=== PATIENT | male | born 1985 ===

== ENCOUNTER 2023-04-11 22:24 | Inpatient (IN) | payer SELFPAY ==
[2023-04-11 22:25] VITALS: BP 129/87; PULSE 113; RESP 32; TEMP 37.6; O2SAT 94; BMI 29.5
--- NOTE | 2023-04-11 22:30 | XRR_ITS ---
PROCEDURE INFORMATION: Exam: XR Chest Exam date and time: 04/11/2023 10:46 PM Age: 37 years old Clinical indication: Pain; Chest pressure; Additional info: Chest pain TECHNIQUE: Imaging protocol: Radiologic exam of the chest. Views: 1 view. COMPARISON: No relevant prior studies available. FINDINGS: Lungs: Shallow inspiration with crowding in the lung bases. Airspace opacity in the peripheral left lung base. The right lung is clear. Pleural spaces: Unremarkable. No pleural effusion. No pneumothorax. Heart/Mediastinum: Unremarkable. No cardiomegaly. Bones/joints: Unremarkable. XR/XR chest 1V portable [id number] IMPRESSION: Opacity in the peripheral left lung base is suspicious for pneumonia.
--- NOTE | 2023-04-11 22:35 | ECG_ITS ---
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 Measurements Intervals [place] Rate: 109 P: 26 DE: 161 QRS: 34 QRSD: 92 T: 50 QT: 325 QTc: 439 Interpretive Statements SINUS TACHYCARDIA NONSPECIFIC T-WAVE ABNORMALITY ABNORMAL RHYTHM ECG No previous ECG available for comparison Electronically Signed On 04-12-2023 21:47:16 DESIGN MAKER by Shena Pepe M.D. [id number]
--- NOTE | 2023-04-11 22:40 | W.ED.CHESTPA ---
HPI - Chest Pain General: Chief Complaint: Chest Pain Stated Complaint: CP, SOB, shoulder pain Time Seen by Provider: 04/11/23 22:31 History of Present Illness: 37-year-old male presents emergency department via EMS personnel with complaints of intermittent shortness of breath and left anterior chest wall pain and left posterior shoulder pain. He states the chest discomfort started this morning while he was driving and is a intermittent dull type pain. He states he has a history of a blood clot in the right lower leg. He states he felt short of breath this morning when the pain started. He denies nausea vomiting or diaphoresis. He denies dizziness or lightheaded feeling. Associated symptoms: Reports dyspnea Review of Systems General: Reports: 10 or more systems reviewed and unremarkable except in HPI and below Card: Reports: chest pain Resp: Reports: dyspnea Musc: Reports: extremity pain (Left shoulder pain) Physical Exam Narrative: EXAM NARRATIVE: Constitutional: the patient appears well nourished and with normal development. Vital signs reviewed as documented. HENMT: Normocephalic, atraumatic. Extermal ears with normal appearance without drainage. Nose without drainage, normal appearance. Mucus membranes moist. Neck is supple, No jugular venous distension, trachea is midline, no appreciable carotid bruits. No lymphadenopathy. No meningeal signs. Flexion, extension and lateral rotation is without pain. Eyes: Pupils are equal, round, reactive to light and accommodation. No scleral icterus. Extra-ocular movement are intact. Thorax is symmetrical and with equal rise and fall with respirations. Resp: Lungs are clear to auscultation. No wheezes, rales, crackles or ronchi at present. Cardio: Regular rate and rhythm. Positive S1, S2. No appreciable murmurs, rubs or gallops. GI: Abdominal exam reveals normal bowel sounds to all quadrants. No organomegaly. No obvious palpable masses noted. No hepatomegally appreciated. Soft, nontender to palpation. Extremity: Extremities are non-edematous and both femoral and pedal pulses are 2+ and equal bilaterally. Moves all extremities well, sensation in all extremities. Neuro: Alert and oriented x4, person, place, time and situation. Cranial nerves II through XII are grossly intact, there is no focal neurological deficits that I can appreciate at present. Motor strength in the upper and lower extremities are equal and bilateral 5/5. Psych: Cooperative, calm, normal thought process, appropriate judgment. Skin: No lesions, rashes. No gross abnormalities noted. Back: Symmetrical, no obvious deformity, No CVA tenderness Course Vital Signs: Vital signs: Vital Signs Temperature 99.6 F 04/11/23 22:25 Pulse Rate 101 H 04/12/23 01:00 Respiratory Rate 18 04/11/23 23:55 Blood Pressure 133/79 04/12/23 01:00 Pulse Oximetry 98 04/12/23 01:00 Oxygen Delivery Me thod Room Air 04/12/23 00:30 MDM - Chest Pain Medical Decision Making Physical exam completed and documented, I will obtain serial cardiac enzymes, serial twelve-lead EKGs, chest x-ray, CBC, CMP, urinalysis, B-type natriuretic peptide, PT/PTT/INR, and a chest x-ray. I provide cardiac dose aspirin if indicated and nitroglycerin administration if indicated. Pending the review of the twelve-lead EKG I will also consider providing loading dose of heparin and possible heparin drip as well as evaluate the need for nitroglycerin drip, and reevaluate accordingly. Lab Data 04/11/23 22:48 04/11/23 22:48 Radiology Impressions Chest X-Ray 04/11/23 22:30 IMPRESSION: Opacity in the peripheral left lung base is suspicious for pneumonia. Chest CTA 04/11/23 23:18 IMPRESSION: 1. Extensive pulmonary emboli. 2. No evidence of right heart strain with an RV to LV ratio of 0.92. 3. Irregular consolidations in the lung bases posteriorly and lingula thought likely to represent pulmonary infarctions. ADDENDUM: 04/12/23 0017 THIS REPORT CONTAINS FINDINGS THAT MAY BE CRITICAL TO PATIENT CARE. The findings were verbally communicated via telephone conference with KARLA Oreilly at 12:16 AM MANAGER DISASTER RECOVERY on 04/12/2023. The findings were acknowledged and understood. Laboratory Results WBC 11.21 10^3/uL (3.29-11.43) 04/11/23 22:48 RBC 4.91 10^6/uL (3.85-5.65) 04/11/23 22:48 Hgb 13.90 g/dL (11.27-16.99) 04/11/23 22:48 Hct 41.5 % (37-53) 04/11/23 22:48 MCV 84.5 fl (82-101) 04/11/23 22:48 MCH 28.3 pg (27-33) 04/11/23 22:48 MCHC 33.5 g/dL (30-55) 04/11/23 22:48 RDW 13.5 % (12.1-15.1) 04/11/23 22:48 Plt Count 225 10^3/cmm (157-399) 04/11/23 22:48 MPV 9.5 fL (7.4-10.4) 04/11/23 22:48 Neut % (Auto) 78.3 % 04/11/23 22:48 Lymph % (Auto) 16.1 % 04/11/23 22:48 [place] % (Auto) 3.7 % 04/11/23 22:48 Eos % (Auto) 1.2 % 04/11/23 22:48 Baso % (Auto) 0.5 % 04/11/23 22:48 Neut # (Auto) 8.78 10^3/uL (1.8-7.7) H 04/11/23 22:48 Lymph # (Auto) 1.8 10^3/uL (0.8-4.8) 04/11/23 22:48 [place] # (Auto) 0.4 10^3/uL (0.2-0.9) 04/11/23 22:48 Eos # (Auto) 0.1 10^3/uL (0.0-0.8) 04/11/23 22:48 Baso # (Auto) 0.1 10^3/uL (0.0-0.1) 04/11/23 22:48 Nucleated RBC % (auto) 0 % 04/11/23 22:48 Nucleated RBCs # 0.0 /100WBC 04/11/23 22:48 PT 13.40 SECONDS (12.1-14.9) 04/11/23 22:48 INR 1.00 (0.8-1.2) 04/11/23 22:48 APTT 26.0 SECONDS (23.9-36.7) 04/11/23 22:48 D-Dimer 1.78 ug/mLFEU (0-0.59) H 04/11/23 22:48 Sodium 141 mmol/L (136-145) 01/10/24 22:48 Potassium 3.9 mmol/L (3.5-5.1) 04/11/23 22:48 Chloride 106 mmol/L (98-107) 04/11/23 22:48 Carbon Dioxide 25 mmol/L (22-29) 04/11/23 22:48 Anion Gap 13.9 (5-19) 04/11/23 22:48 BUN 12 mg/dL (6-20) 04/11/23 22:48 Creatinine 0.8 mg/dL (0.7-1.2) 04/11/23 22:48 GFR Calculation 109.4 mL/min (90-130) 04/11/23 22:48 Glucose 122 mg/dL (65-115) H 04/11/23 22:48 Calculated Osmolality 293 mOsm/kg (285-295) 04/11/23 22:48 Calcium 8.7 mg/dL (8.5-10.5) 04/11/23 22:48 Total Bilirubin 0.5 mg/dL (0.15-1.2) 04/11/23 22:48 AST 13 U/L (0-40) 04/11/23 22:48 ALT 18 U/L (0-41) 04/11/23 22:48 Alkaline Phosphatase 81 U/L (40-130) 04/11/23 22:48 Troponin T Baseline < 6 ng/L (0-15) 04/11/23 22:48 Troponin T 120 Minute 6.00 ng/L (0-15) 04/12/23 00:36 Delta Troponin T 0.43233 ABS# (0-10) 04/12/23 00:36 NT-Pro-B Natriuret Pep < 36 pg/mL (0-125) 04/11/23 22:48 Total Protein 7.0 g/dL (6.6-8.7) 04/11/23 22:48 Albumin 3.8 g/dL (3.5-5.2) 04/11/23 22:48 Globulin 3.2 g/dL (1.3-4.6) 04/11/23 22:48 Urine Color Yellow (Yellow) 04/12/23 00:00 Urine Appearance Clear (CLEAR) 04/12/23 00:00 Urine pH 6 (5-7) 04/12/23 00:00 Ur Specific [place] 1.015 (1.005-1.030) 04/12/23 00:00 Urine Protein Trace (Negative) 04/12/23 00:00 Urine Glucose (UA) Norm (Normal) 04/12/23 00:00 Urine Ketones Negative (Negative) 04/12/23 00:00 Urine Blood Neg (Negative) 04/12/23 00:00 Urine Nitrate Negative (Negative) 04/12/23 00:00 Urine Bilirubin Neg (Negative) 04/12/23 00:00 Urine Urobilinogen 1 mg/dL (Negative) H 04/12/23 00:00 Ur Leukocyte Esterase Negative (Negative) 04/12/23 00:00 Urine RBC 0-4 /hpf (0-2) H 04/12/23 00:00 Urine WBC 0-4 /hpf (0-5) H 04/12/23 00:00 Ur Squamous Epith Cells 0-4 /hpf (0-5) H 04/12/23 00:00 Amorphous Sediment Not Reportable 04/12/23 00:00 Urine Bacteria Trace /hpf (NONE) 04/12/23 00:00 Urine Mucus Trace /hpf 04/12/23 00:00 Urine Opiates Screen Negative ng/mL (Negative) 04/12/23 00:00 Ur Barbiturates Screen Negative ng/mL (Negative) 04/12/23 00:00 Ur Phencyclidine Scrn Negative ng/mL (Negative) 04/12/23 00:00 Ur Amphetamines Screen Negative ng/mL (Negative) 04/12/23 00:00 U Benzodiazepines Scrn Negative ng/mL (Negative) 04/12/23 00:00 Urine Cocaine Screen Negative ng/mL (Negative) 04/12/23 00:00 U Marijuana (THC) Screen Negative ng/mL (Negative) 04/12/23 00:00 All radiology interpretation(s) finalized by discharge EKG Data EKG 1: Interpretation: Twelve-lead EKG obtained at 2235 and reviewed at 2235 demonstrates sinus tachycardia with a ventricular rate of 109 bpm, [place] interval 161, QRS duration 92, QT 325 and QTc 389. There is no ST elevation or depression at present to demonstrate acute ischemia or infarction. Critical Care Time Critical Care Time: Critical Care Time: Yes Total Critical Care Time: 60 Attestation: The patients was emergently evaluated as this patient's presentation and case had a high probability of a clinically significant, sudden, or life threatening deterioration of this patient's initial critical presentation or condition which required my full and direct attention, intervention and personal management. Discharge Plan Discharge Patient Disposition: Admitted As Inpatient Clinical Impression: Pulmonary embolism, Chest pain Condition: Stable Coding Level of Care Code ED Diagnostics Tech for Rikki Aj
[2023-04-11 22:54] LABS: Basophils # 0.1 10^3/uL (0.0-0.1); Basophils % 0.5 %; Eosinophils # 0.1 10^3/uL (0.0-0.8); Eosinophils % 1.2 %; Hematocrit 41.5 % (37-53); Lymphocytes # 1.8 10^3/uL (0.8-4.8); Lymphocytes % 16.1 %; Mean Corpuscular HGB Conc 33.5 g/dL (30-55); Mean Corpuscular Hemoglobin 28.3 pg (27-33); Mean Corpuscular Volume 84.5 fl (82-101); Mean Platelet Volume 9.5 fL (7.4-10.4); Monocytes # 0.4 10^3/uL (0.2-0.9); Monocytes % 3.7 %; Neutrophils # 8.78 10^3/uL (1.8-7.7); Neutrophils % 78.3 %; Nucleated Red Blood Cells % 0 %; Platelet Count 225 10^3/cmm (157-399); Red Blood Count 4.91 10^6/uL (3.85-5.65); Red Cell Distribution Width 13.5 % (12.1-15.1); White Blood Count 11.21 10^3/uL (3.29-11.43)
[2023-04-11 22:55] VITALS: PULSE 97; O2SAT 98
[2023-04-11 23:10] LABS: D Dimer 1.78 ug/mLFEU (0-0.59)
--- NOTE | 2023-04-11 23:18 | CTR_ITS ---
PROCEDURE INFORMATION: Exam: CTA Chest With Contrast Exam date and time: 04/11/2023 11:30 PM Age: 37 years old Clinical indication: Pain and abnormal findings; Other: Elevated dimer; Dyspnea; Chest wall pain; Patient HX: Left side chest pain; Additional info: Shortness of breath, chest pain, elevated d-dimer TECHNIQUE: Imaging protocol: Computed tomographic angiography of the chest with contrast. Exam focused on the arteries. 3D rendering (Not supervised by radiologist): MIP and/or 3D reconstructed images were created by the technologist. Radiation optimization: All CT scans at this facility use at least one of these dose optimization techniques: automated exposure control; mA and/or kV adjustment per patient size (includes targeted exams where dose is matched to clinical indication); or iterative reconstruction. Contrast material: OMNI 350; Contrast volume: 80 ml; Contrast route: INTRAVENOUS (IV); COMPARISON: CR XR chest 1V portable [id number] 04/11/2023 10:46 PM RADIATION DOSE METRICS: Total DLP (mGy-cm): 553.98 FINDINGS: Pulmonary arteries: Pulmonary emboli in the subsegmental pulmonary artery supplying the lingula, left lower lobe, right lower lobe, right middle lobe and segmental artery supplying the right upper. Aorta: Unremarkable. No aortic aneurysm. No aortic dissection. Lungs: Irregular consolidations in the lung bases posteriorly and lingula. Pleural spaces: Unremarkable. No pneumothorax. No pleural effusion. Heart: No evidence of right heart strain with an RV to LV ratio of 0.92. Lymph nodes: Unremarkable. No enlarged lymph nodes. Bones/joints: Unremarkable. No acute fracture. Soft tissues: Unremarkable. CT/CT angio chest PE protcl [id number] IMPRESSION: 1. Extensive pulmonary emboli. 2. No evidence of right heart strain with an RV to LV ratio of 0.92. 3. Irregular consolidations in the lung bases posteriorly and lingula thought likely to represent pulmonary infarctions.
[2023-04-11 23:22] LABS: Troponin(5th) Baseline < 6 ng/L (0-15)
[2023-04-11 23:25] VITALS: PULSE 98; O2SAT 97
[2023-04-11 23:29] LABS: Alanine Aminotransferase 18 U/L (0-41); Albumin Level 3.8 g/dL (3.5-5.2); Alkaline Phosphatase 81 U/L (40-130); Anion Gap 13.9 (5-19); Aspartate Amino Transferase 13 U/L (0-40); Blood Urea Nitrogen 12 mg/dL (6-20); Calcium 8.7 mg/dL (8.5-10.5); Carbon Dioxide 25 mmol/L (22-29); Chloride 106 mmol/L (98-107); Creatinine Clr Calc Pharmacy 151.0253; Globulin 3.2 g/dL (1.3-4.6); Glomerular Filtration Rate 109.4 mL/min (90-130); Glucose 122 mg/dL (65-115); NT Pro B Type Natriuretic Pept < 36 pg/mL (0-125); Osmolality Calculated 293 mOsm/kg (285-295); Potassium 3.9 mmol/L (3.5-5.1); Sodium 141 mmol/L (136-145); Total Bilirubin 0.5 mg/dL (0.15-1.2)
[2023-04-11] MEDS: iohexol 350 mg/mL 500 mL Btl (per mL) IV (23:43)
[2023-04-11 23:55] VITALS: PULSE 98; RESP 18; O2SAT 97
[2023-04-12] VITALS (16 sets, daily range): BP systolic 121–142; BP diastolic 77–93; PULSE 65–106; RESP 16–18; TEMP 36.5–38.3; O2SAT 90–99; BMI 29.2
[2023-04-12 00:14] LABS: Amphetamines Screen Urine Negative (Negative); Barbiturates Screen Urine Negative (Negative); Benzodiazepines Screen Urine Negative (Negative); Cocaine Screen Urine Negative (Negative); Opiate Screen Urine Negative (Negative); PCP Screen Urine Negative (Negative); THC Screen Urine Negative (Negative)
[2023-04-12 00:16] LABS: Add Urine Microscopic? YES; Bacteria Urine TRACE /hpf; Bilirubin Urine Neg (Negative); Blood Urine Neg (Negative); Glucose Urine UA Norm (Normal); Ketones Urine Negative (Negative); Leukocyte Esterase Urine Negative (Negative); Mucus Urine TRACE /hpf; Nitrate Urine Negative (Negative); Protein Urine Trace (Negative); RBC Urine 0-4 /hpf (0-2); Specific Gravity, Urine 1.015 (1.005-1.030); Squamous Epithelial Cell Urine 0-4 /hpf (0-5); Urine Appearance Clear (CLEAR); Urine Color Yellow (Yellow); Urobilinogen Urine 1 mg/dL (Negative); WBC Urine 0-4 /hpf (0-5); pH Urine 6 (5-7)
[2023-04-12 00:17] LABS: Add Urine Culture? No
--- NOTE | 2023-04-12 00:39 | ECG_ITS ---
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 Measurements Intervals [place] Rate: 94 P: 30 [place]: 160 QRS: 37 QRSD: 90 T: 53 QT: 336 QTc: 420 Interpretive Statements SINUS RHYTHM NONSPECIFIC T-WAVE ABNORMALITY Compared to ECG 04/11/2023 22:35:44 Sinus tachycardia no longer present T-wave abnormality still present Electronically Signed On 04-12-2023 21:50:47 MENTAL TESTER by Shena Pepe M.D. [id number]
[2023-04-12 01:11] LABS: Troponin 5 2HR Delta 0.00001 ABS# (0-10)
--- NOTE | 2023-04-12 01:11 | USR_ITS ---
PROCEDURE INFORMATION: Exam: US Duplex Lower Extremity Veins, Bilateral Exam date and time: 04/12/2023 1:29 AM Age: 37 years old Clinical indication: Pain; Other: Limited citizen of [place], patient is from [facility]. ; Additional info: Evaluate for dvt TECHNIQUE: Imaging protocol: Real-time duplex ultrasound of the bilateral extremities with 2-D ch scale, color Doppler flow and spectral waveform analysis including responses to compression and other maneuvers (when performed) with image documentation. Complete exam focused on the lower extremity veins. COMPARISON: No relevant prior studies available. FINDINGS: Right deep veins: One of the 2 right posterior tibial veins is thrombosed. The other is patent. The remainder of the veins in the right lower extremity are patent. Left deep veins: Unremarkable. The common femoral, femoral, proximal profunda femoral and popliteal veins are patent without thrombus. Normal Doppler waveforms. Normal compressibility and/or augmentation response. Superficial veins: Bilateral saphenofemoral junctions are patent without thrombus. Soft tissues: Unremarkable. US/[place] [id number] IMPRESSION: 1. One of the 2 right posterior tibial veins is thrombosed. The other is patent. The remainder of the veins in the right lower extremity are patent. 2. No deep venous thrombosis in the left lower extremity.
[2023-04-12] MEDS: heparin drip 25,000 UNIT/500 ML PREMIX 27 UNIT IV (01:42)
[2023-04-12] MEDS: heparin 5,000 unit/mL INJ 1 mL IV ×2 (01:44→08:46)
[2023-04-12] MEDS: morphine 4 mg/mL SDV 1 mL IVP (02:16)
[2023-04-12] MEDS: ondansetron 2 mg/ML SDV 2 mL 4 MG IVP (02:16)
--- NOTE | 2023-04-12 03:57 | PC.NURSE ---
[place]ian network operations lead utilized for admission assessment questions. Pt verbalized understanding of care and all questions and concerns were addressed.
--- NOTE | 2023-04-12 05:04 | P.HP_ITS ---
Providers/Chief Complaint 2 Admitting Physician: Fatoumata Torres MD Chief Complaint: CP, SOB, shoulder pain History of Present Illness Alison Rayo is a 37 year old male Who presented to the emergency room today with chest pain of 1 day duration. Pain is located on the left axillary region, radiating into the left shoulder. Deep breathing makes it worse. His EKG did not show any acute ST-T wave changes and troponin series was unremarkable. CTA of the chest was performed which showed bilateral PE. Is currently saturating 95% on room air. Patient has a past medical history of DVT 7 years ago, per his description it appears the DVT was fairly extensive extending into the IVC. He was on Coumadin at that time and took it for a few months, however then he decided to discontinue treatment by himself as he was feeling well. It is unknown if he had any hypercoagulable workup at that time. No history of malignancy. No family history of DVT/PE. 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 He had appendicitis 2 months ago and underwent surgery for the same. He was ambulatory, does not recall being sedentary for a prolonged peiord of time Review of Systems 2 General: Reports: 10 or more systems reviewed and unremarkable except in HPI and below Const: Denies: fever(s), chills or body aches Eyes: Denies: change in vision, blurry vision or photophobia ENMT: Reports: hoarseness; Denies: throat pain, enlarged tonsils, odynophagia or nasal congestion Card: Denies: chest pain, palpitations, irregular heart rhythm, edema, swelling of feet/ankles, lightheadedness, pre-syncope, dyspnea on exertion or orthopnea Resp: Denies: dyspnea, productive cough, non-productive cough, wheezing, stridor, pain on inspiration, change in phlegm color, hemoptysis or chest congestion GI: Denies: abdominal pain, nausea, vomiting, hematemesis, coffee ground emesis, dysphagia, heartburn, diarrhea, constipation, GI cramping, change in stool character, hematochezia or melena : Denies: flank pain, dysuria, urinary frequency, urinary urgency, urinary hesitancy or hematuria Musc: Denies: neck pain, back pain, extremity pain, joint swelling, joint warmth or deformity Neuro: Denies: headache(s), numbness in extremities, weakness in extremities, sensory changes, difficulty walking, frequent falls, dizziness, vertigo, behavioral changes, Slurred speech present or seizure-like activity Psych: Denies: anxiety, depression, suicidal ideation or homicidal ideation Endo: Denies: polyuria, polydipsia, tired all the time, cold intolerance or hot flashes Jose Luis/Lymph: Denies: easy bruising or easy bleeding Medications/Allergies Allergies Allergy/AdvReac Type Severity Reaction Status Date / Time No Known Allergies Allergy Verified 04/12/23 02:00 PFSH Acute 2 PFSH: Medical History (Updated 04/12/23 @ 05:09 by Fatoumata Torres MD) DVT (deep venous thrombosis) Vitals/I&O/Wt Last Vital Signs Temp 98.1 F 04/12/23 03:04 Pulse 75 04/12/23 03:04 Resp 16 04/12/23 03:04 BP 122/82 04/12/23 03:04 Pulse Ox 95 04/12/23 03:04 O2 Del Method Room Air 04/12/23 03:05 04/11/23 04/11/23 04/12/23 14:59 22:59 06:59 Intake Total 0 / 0 Output Total 0 / 0 Balance 0 / 0 Weight last 48 hrs Weight 95.254 kg Weight 96.162 kg Physical Exam 2 Narrative: General: No acute distress, AO x3 HEENT: PERRLA, pupils bilaterally equal and reactive, pallors not present Chest: Normal vesicular breath sounds, no added sounds, equal good air entry bilaterally CVS: S1-S2 regular, no murmurs, no tachycardia, no gallops, no rubs Abdomen: Soft, nontender, no organomegaly, bowel sounds present Neuro: No focal deficits, no facial deformity, AO x3, power 5/5 in all limbs Data 04/11/23 22:48 04/11/23 22:48 Other data: Radiology Impressions Chest X-Ray 04/11/23 22:30 IMPRESSION: Opacity in the peripheral left lung base is suspicious for pneumonia. Chest CTA 04/11/23 23:18 IMPRESSION: 1. Extensive pulmonary emboli. 2. No evidence of right heart strain with an RV to LV ratio of 0.92. 3. Irregular consolidations in the lung bases posteriorly and lingula thought likely to represent pulmonary infarctions. ADDENDUM: 04/12/23 0017 THIS REPORT CONTAINS FINDINGS THAT MAY BE CRITICAL TO PATIENT CARE. The findings were verbally communicated via telephone conference with KALRA Oreilly at 12:16 AM RADIO TIME SALES SUPERVISOR on 04/12/2023. The findings were acknowledged and understood. Venous Duplex 04/12/23 01:11 IMPRESSION: 1. One of the 2 right posterior tibial veins is thrombosed. The other is patent. The remainder of the veins in the right lower extremity are patent. 2. No deep venous thrombosis in the left lower extremity. ADDENDUM: 04/12/23 0253 THIS REPORT CONTAINS FINDINGS THAT MAY BE CRITICAL TO PATIENT CARE. The findings were verbally communicated via telephone conference with Dr. Brady at 2:51 AM RADIO TIME SALES SUPERVISOR on 04/12/2023. The findings were acknowledged and understood. Laboratory Results WBC 11.21 10^3/uL (3.29-11.43) 04/11/23 22:48 RBC 4.91 10^6/uL (3.85-5.65) 04/11/23 22:48 Hgb 13.90 g/dL (11.27-16.99) 04/11/23 22:48 Hct 41.5 % (37-53) 04/11/23 22:48 MCV 84.5 fl (82-101) 04/11/23 22:48 MCH 28.3 pg (27-33) 04/11/23 22:48 MCHC 33.5 g/dL (30-55) 04/11/23 22:48 RDW 13.5 % (12.1-15.1) 04/11/23 22:48 Plt Count 225 10^3/cmm (157-399) 04/11/23 22:48 MPV 9.5 fL (7.4-10.4) 04/11/23 22:48 Neut % (Auto) 78.3 % 04/11/23 22:48 Lymph % (Auto) 16.1 % 04/11/23 22:48 [place] % (Auto) 3.7 % 04/11/23 22:48 Eos % (Auto) 1.2 % 04/11/23 22:48 Baso % (Auto) 0.5 % 04/11/23 22:48 Neut # (Auto) 8.78 10^3/uL (1.8-7.7) H 04/11/23 22:48 Lymph # (Auto) 1.8 10^3/uL (0.8-4.8) 04/11/23 22:48 [place] # (Auto) 0.4 10^3/uL (0.2-0.9) 04/11/23 22:48 Eos # (Auto) 0.1 10^3/uL (0.0-0.8) 04/11/23 22:48 Baso # (Auto) 0.1 10^3/uL (0.0-0.1) 04/11/23 22:48 Nucleated RBC % (auto) 0 % 04/11/23 22:48 Nucleated RBCs # 0.0 /100WBC 04/11/23 22:48 PT 13.40 SECONDS (12.1-14.9) 04/11/23 22:48 INR 1.00 (0.8-1.2) 04/11/23 22:48 APTT 26.0 SECONDS (23.9-36.7) 04/11/23 22:48 D-Dimer 1.78 ug/mLFEU (0-0.59) H 04/11/23 22:48 Sodium 141 mmol/L (136-145) 04/11/23 22:48 Potassium 3.9 mmol/L (3.5-5.1) 04/11/23 22:48 Chloride 106 mmol/L (98-107) 04/11/23 22:48 Carbon Dioxide 25 mmol/L (22-29) 04/11/23 22:48 Anion Gap 13.9 (5-19) 04/11/23 22:48 BUN 12 mg/dL (6-20) 04/11/23 22:48 Creatinine 0.8 mg/dL (0.7-1.2) 04/11/23 22:48 GFR Calculation 109.4 mL/min (90-130) 04/11/23 22:48 Glucose 122 mg/dL (65-115) H 04/11/23 22:48 Calculated Osmolality 293 mOsm/kg (285-295) 04/11/23 22:48 Calcium 8.7 mg/dL (8.5-10.5) 04/11/23 22:48 Total Bilirubin 0.5 mg/dL (0.15-1.2) 04/11/23 22:48 AST 13 U/L (0-40) 04/11/23 22:48 ALT 18 U/L (0-41) 04/11/23 22:48 Alkaline Phosphatase 81 U/L (40-130) 04/11/23 22:48 Troponin T Baseline < 6 ng/L (0-15) 04/11/23 22:48 Troponin T 120 Minute 6.00 ng/L (0-15) 04/12/23 00:36 Delta Troponin T 0.18410 ABS# (0-10) 04/12/23 00:36 NT-Pro-B Natriuret Pep < 36 pg/mL (0-125) 04/11/23 22:48 Total Protein 7.0 g/dL (6.6-8.7) 04/11/23 22:48 Albumin 3.8 g/dL (3.5-5.2) 04/11/23 22:48 Globulin 3.2 g/dL (1.3-4.6) 04/11/23 22:48 Urine Color Yellow (Yellow) 04/12/23 00:00 Urine Appearance Clear (CLEAR) 04/12/23 00:00 Urine pH 6 (5-7) 04/12/23 00:00 Ur Specific [place] 1.015 (1.005-1.030) 04/12/23 00:00 Urine Protein Trace (Negative) 04/12/23 00:00 Urine Glucose (UA) Norm (Normal) 04/12/23 00:00 Urine Ketones Negative (Negative) 04/12/23 00:00 Urine Blood Neg (Negative) 04/12/23 00:00 Urine Nitrate Negative (Negative) 04/12/23 00:00 Urine Bilirubin Neg (Negative) 04/12/23 00:00 Urine Urobilinogen 1 mg/dL (Negative) H 04/12/23 00:00 Ur Leukocyte Esterase Negative (Negative) 04/12/23 00:00 Urine RBC 0-4 /hpf (0-2) H 04/12/23 00:00 Urine WBC 0-4 /hpf (0-5) H 04/12/23 00:00 Ur Squamous Epith Cells 0-4 /hpf (0-5) H 04/12/23 00:00 Amorphous Sediment Not Reportable 04/12/23 00:00 Urine Bacteria Trace /hpf (NONE) 04/12/23 00:00 Urine Mucus Trace /hpf 04/12/23 00:00 Urine Opiates Screen Negative ng/mL (Negative) 04/12/23 00:00 Ur Barbiturates Screen Negative ng/mL (Negative) 04/12/23 00:00 Ur Phencyclidine Scrn Negative ng/mL (Negative) 04/12/23 00:00 Ur Amphetamines Screen Negative ng/mL (Negative) 04/12/23 00:00 U Benzodiazepines Scrn Negative ng/mL (Negative) 04/12/23 00:00 Urine Cocaine Screen Negative ng/mL (Negative) 04/12/23 00:00 U Marijuana (THC) Screen Negative ng/mL (Negative) 04/12/23 00:00 A&P Assessment and plan (1) Pulmonary embolism: Qualifiers: Acute cor pulmonale presence: without acute cor pulmonale Chronicity: u nspecified Pulmonary embolism type: unspecified Qualified Code(s): I26.99 - Other pulmonary embolism without acute cor pulmonale (2) DVT (deep venous thrombosis): (3) Pulmonary infarct: Plan 37-year-old male with a past medical history of DVT 7 years ago, presenting today for left-sided chest pain. Found to have extensive pulmonary emboli involving the lingula, left lower lobe, right lower lobe, right middle lobe and segmental arteries supplying the right upper lobe. Also has additional DVT involving the posterior tibial vein on the right leg. 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 Left lower lobe pulmonary infarct, correlates with the site of pain that patient describes. Started on treatment with heparin drip in the emergency room which we will continue. Discussed with patient transition to p.o. Eliquis at the time of discharge. Obtain echocardiogram to assess for right heart strain. Currently saturating 95% on room air, continue to monitor closely, supplemental O2 to keep saturation greater than 92% if needed. Since this is a second episode of what appears to be unprovoked DVT/PE, would warrant evaluation for hypercoagulable, will likely benefit from hematology referral at the time of discharge. He is currently afebrile, no leukocytosis, denies any cough. Monitor for development of pneumonia in the region of pulmonary infarct. Attestations 2 Medical Necessity Statement*: Greater than 2 midnight admission is anticipated for management of DVT/PE, need for heparin infusion Coding Level of Care Code Acute Code for Chg Fwd High MDM includes number and complexity of problems actively addressed during encounter, amount and/or complexity of data reviewed/ordered and described risk of complication, morbidity or mortality of management as documented Diagnoses Pulmonary embolism I26.99 Acute cor pulmonale presence: without acute cor pulmonale Chronicity: unspecified Pulmonary embolism type: unspecified DVT (deep venous thrombosis) I82.409 Pulmonary infarct I26.99
--- NOTE | 2023-04-12 05:08 | USCV_ITS ---
Alison Rayo Age: 37 Gender: M : 1985 Exam Date: 04/12/2023 06:49 Ordering Phys: Fatoumata Torres MD Technologist: [place] Exam Location: [facility] [place] Indication: pe ? rt heart strain BP: 124 / 73 HR: 72 Rhythm: Sinus Technical Quality: Adequate MEASUREMENTS (Male / Female) Normal Values 2D ECHO LV Diastolic Diameter PLAX 4.1 cm 4.2 - 5.9 / 3.9 - 5.3 cm LV Systolic Diameter PLAX 3.2 cm IVS Diastolic Thickness 1.1 cm 0.6 - 1.0 / 0.6 - 0.9 cm IVS Systolic Thickness 1.6 cm LVPW Diastolic Thickness 1.1 cm 0.6 - 1.0 / 0.6 - 0.9 cm LVPW Systolic Thickness 1.8 cm LVOT Diameter 2.0 cm LV Ejection Fraction 2D Teich 39.6 % LV Ejection Fraction MOD 2C 73.4 % LV Ejection Fraction 2C AL 73.1 % LA Diameter 3.7 cm IVC Diameter 1.6 cm M-MODE RV Diastolic Diameter MM 1.6 cm Aortic Annulus Diameter 3.2 cm LA Ao Ratio MM 1.2 MV E Point Septal Separation 0.7 cm DOPPLER AV Peak Velocity 135.0 cm/s LVOT Peak Velocity 83.0 cm/s AV Area Cont Eq vti 2.2 cm squared AV Area Cont Eq pk 2.0 cm squared MV Area PHT 3.6 cm squared Mitral E to A Ratio 1.2 MV E' Velocity 44.0 cm/s Mitral E to MV E' Ratio 6.6 Mitral E to LV E' Lateral Ratio 6.3 Mitral E to LV E' Septal Ratio 7.1 TR Peak Velocity 126.7 cm/s TR Peak Gradient 6.4 mmHg TV Peak E Velocity 76.0 cm/s Right Atrial Pressure 3.0 mmHg Pulmonary Artery Systolic Pressu 9.4 mmHg FINDINGS Left Ventricle Normal left ventricular size and systolic function, EF 71 %. No regional wall motion abnormalities. Right Ventricle Appears to be normal size and ejection fraction Right Atrium Possibly of normal size Left Atrium The left atrium is normal in size. Mitral Valve Trace mitral valve regurgitation. Aortic Valve No gross abnormalities noted Tricuspid Valve Trace tricuspid valve regurgitation. Pulmonic Valve No gross abnormalities noted Pericardium Normal pericardium without effusion. Aorta Normal ascending aorta dimension. IVC The inferior vena cava appears normal. CONCLUSIONS Normal left ventricular size and systolic function, EF 71 %. No regional wall motion abnormalities. Normal cardiac chamber sizes. Trace of mitral and tricuspid regurgitation The right-sided structures could not be visualized well. No gross abnormalities noted No intracardiac masses No pericardial effusion Possibly normal RV strain. PA pressure estimation is difficult because of the poor Doppler signals. Possibly normal PA pressure No similar previous studies are available for comparison Dr Shena Pepe MD [facility] (Electronically Signed) Final Date: 12 April 2023 09:32 S
[2023-04-12 05:14] LABS: Troponin 5 6HR Delta 0.00001 ng/L (0-12)
[2023-04-12 08:06] LABS: Partial Thromboplastin Time 46.3 SECONDS (23.9-36.7)
--- NOTE | 2023-04-12 08:18 | CT_ITS ---
WS: [id number] CT ABDOMEN PELVIS TECHNIQUE: Noncontrast CT of the abdomen and pelvis with coronal and sagittal reformatted images. CLINICAL INFORMATION: recurrent dvt COMPARISON: None. DLP: 1008.[address] scans at [facility] use at least one of these dose optimization techniques: automated e xposure control; mA and/or kV adjustment per patient size (includes targeted exams where dose is matc hed to clinical indication); or iterative reconstruction. FINDINGS: Bilateral pleural effusions with compressive atelectasis in the lung bases LEFT greater than RIGHT. P atchy groundglass infiltrates in the lingula. This is similar to the recent CTA chest. Normal noncontrast liver. Vicarious excretion of contrast in the gallbladder. Normal GE junction. Non contrast pancreas is normal. Adrenal glands are normal. Normal noncontrast spleen. No hydronephrosis in either kidney. Contrast in the bladder from recent CTA chest. Small LEFT renal cyst. Normal calibe r abdominal aorta. Prior appendectomy. IMPRESSION: 1. Tiny LEFT greater than RIGHT pleural effusions with compressive atelectasis in the lung bases. Pa tchy infiltrates in the lingula similar to the recent CTA chest. 2. No acute findings in the abdomen or pelvis.
[2023-04-12] MEDS: pantoprazole DR 40 mg Tablet PO (08:48)
[2023-04-12] MEDS: morphine 4 mg/mL SDV 1 mL 2 MG IVP (08:51)
--- NOTE | 2023-04-12 08:54 | PC.PHAR ---
04/12/23 VERIFIED WITH MIAH IN [facility]. NO MAINTENANCE MEDS AND NO ALLERGIES TO MEDICATIONS.
[2023-04-12 09:27] LABS: Vitamin B12 384 pg/mL (232-1245)
[2023-04-12] MEDS: oxyCODONE-APAP 5-325 mg Tablet 1 TAB PO (10:37)
--- NOTE | 2023-04-12 11:11 | P.EN_ITS ---
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
--- NOTE | 2023-04-12 11:11 | W.PM.EVENTAC ---
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
[2023-04-12] MEDS: ketorolac 30 mg/mL INJ IVP (13:17)
[2023-04-12 14:55] LABS: Partial Thromboplastin Time 26.4 SECONDS (23.9-36.7)
[2023-04-12] MEDS: enoxaparin 100 mg/mL Syringe 90 MG SUBCUT (17:12)
--- NOTE | 2023-04-12 21:02 | PC.NURSE ---
This nurse offered pain medication to the pt. The pt stated he does not need any and verbalized understanding that he is able to have them whenever he feels the need.
[2023-04-13] VITALS (8 sets, daily range): BP systolic 114–132; BP diastolic 75–84; PULSE 79–104; RESP 16–20; TEMP 36.3–37.6; O2SAT 93–98
[2023-04-13] MEDS: oxyCODONE-APAP 5-325 mg Tablet 1 TAB PO (01:43)
[2023-04-13] MEDS: enoxaparin 100 mg/mL Syringe 90 MG SUBCUT ×2 (05:19→17:14)
[2023-04-13 07:05] LABS: Basophils % 0.3 %; Eosinophils # 0.1 10^3/uL (0.0-0.8); Eosinophils % 0.4 %; Hematocrit 48.7 % (37-53); Lymphocytes # 3.1 10^3/uL (0.8-4.8); Lymphocytes % 26.2 %; Mean Corpuscular HGB Conc 32.2 g/dL (30-55); Mean Corpuscular Hemoglobin 27.5 pg (27-33); Mean Corpuscular Volume 85.3 fl (82-101); Mean Platelet Volume 9.8 fL (7.4-10.4); Monocytes # 0.4 10^3/uL (0.2-0.9); Monocytes % 3.2 %; Neutrophils # 8.31 10^3/uL (1.8-7.7); Neutrophils % 69.6 %; Nucleated Red Blood Cells % 0 %; Platelet Count 289 10^3/cmm (157-399); Red Blood Count 5.71 10^6/uL (3.85-5.65); Red Cell Distribution Width 13.5 % (12.1-15.1); White Blood Count 11.94 10^3/uL (3.29-11.43)
[2023-04-13 07:32] LABS: Alanine Aminotransferase 25 U/L (0-41); Alkaline Phosphatase 114 U/L (40-130); Anion Gap 16.9 (5-19); Aspartate Amino Transferase 27 U/L (0-40); Blood Urea Nitrogen 13 mg/dL (6-20); Calcium 9.2 mg/dL (8.5-10.5); Carbon Dioxide 24 mmol/L (22-29); Chloride 102 mmol/L (98-107); Globulin 3.8 g/dL (1.3-4.6); Glomerular Filtration Rate 84.5 mL/min (90-130); Glucose 143 mg/dL (65-115); Osmolality Calculated 291 mOsm/kg (285-295); Potassium 3.9 mmol/L (3.5-5.1); Sodium 139 mmol/L (136-145); Total Bilirubin 0.9 mg/dL (0.15-1.2); Total Protein 7.8 g/dL (6.6-8.7)
[2023-04-13] MEDS: pantoprazole DR 40 mg Tablet PO (09:23)
--- NOTE | 2023-04-13 11:41 | PM.PN ---
Subjective Subjective: Patient is still complaining of tachypnea and pain on deep breathing I gave him option to go home today patient is stating that he does not have any home he will go back in his truck and start driving considering his considerable pleuritic pain on the left side with movement and tachypnea I do not think he is ready to be discharged today, will reevaluate tomorrow He will need Eliquis DVT package Vitals/I&O/Wt Last Vital Signs Temp 99.6 F 04/13/23 11:18 Pulse 104 H 04/13/23 11:18 Resp 17 04/13/23 11:18 BP 118/84 04/13/23 11:18 Pulse Ox 93 04/13/23 11:18 O2 Del Method Room Air 04/13/23 11:18 O2 Flow Rate 2 04/13/23 07:27 04/12/23 04/13/23 04/13/23 22:59 06:59 14:59 Intake Total 480 / 480 Balance 480 / 480 Weight last 48 hrs Weight 95.765 kg Weight 94.999 kg Weight 95.254 kg Weight 96.162 kg Physical Exam Narrative: Awake and alert GCS 15 Walking around Currently on room air No signs of hemodynamic instability Pleasant cooperative Euvolemic Currently on room air Data 04/13/23 06:28 04/13/23 06:28 A&P Assessment and plan (1) Chest pain: Qualifiers: Chest pain type: unspecified Qualified Code(s): R07.9 - Chest pain, unspecified (2) DVT (deep venous thrombosis): (3) Pulmonary infarct: (4) Pulmonary embolism: Qualifiers: Acute cor pulmonale presence: without acute cor pulmonale Chronicity: unspecified Pulmonary embolism type: unspecified Qualified Code(s): I26.99 - Other pulmonary embolism without acute cor pulmonale Plan Recurrent DVT and PE 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
[2023-04-13] MEDS: sodium chloride 0.9% 1,000 ML 75 ML IV (13:02)
[2023-04-14] VITALS: BP 114/76; PULSE 82; RESP 17; TEMP 36.6; O2SAT 93
[2023-04-14] MEDS: sodium chloride 0.9% 1,000 ML 75 ML IV (02:30)
[2023-04-14 04:00] VITALS: BP 127/83; PULSE 72; RESP 16; TEMP 36.6; O2SAT 94
[2023-04-14] MEDS: enoxaparin 100 mg/mL Syringe 90 MG SUBCUT (05:39)
[2023-04-14 06:00] VITALS: PULSE 64
[2023-04-14 07:47] VITALS: BP 128/80; PULSE 77; RESP 18; TEMP 36.4; O2SAT 95
[2023-04-14] MEDS: lidocaine 5% Patch 1 PATCH TOPICAL (08:27)
[2023-04-14] MEDS: pantoprazole DR 40 mg Tablet PO (08:31)
--- NOTE | 2023-04-14 10:25 | P.DS_ITS ---
Discharge Providers Date of Admission: 04/12/23 02:04 Date of Discharge: April 14, 2023 Attending Provider at Admission: Fatoumata Torres MD Attending Provider at Discharge: Hayde Price MD Diagnoses at Discharge Discharge Diagnosis (1) Chest pain: Status: Acute Qualifiers: Chest pain type: unspecified Qualified Code(s): R07.9 - Chest pain, unspecified (2) DVT (deep venous thrombosis): Status: Acute (3) Pulmonary infarct: Status: Acute (4) Pulmonary embolism: Status: Acute Qualifiers: Acute cor pulmonale presence: without acute cor pulmonale Chronicity: unspecified Pulmonary embolism type: unspecified Qualified Code(s): I26.99 - Other pulmonary embolism without acute cor pulmonale Reason for Visit Reason for Visit: CP, SOB, shoulder pain Hospital Course Hospital Course 37-year male who was admitted for management evaluation of left-sided chest pain he was diagnosed with acute DVT and a PE without right heart strain, he has been experiencing left-sided pain due to pulmonary infarction which is pleuritic in nature he responded very well to anti-inflammatory medications 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 Echo did not show any right heart strain. Hemodynamically stable Currently on room air Physical Exam Narrative: GCS 15 S1, S2 Awake and alert Currently on room air Pleasant cooperative Hemodynamically stable Discharge Data Studies Completed and Pending Completed Studies During Hospitalization Category Date Time Status CT abdomen pelvis wo con [id number] Routine Cat Scan 04/12/23 08:18 Completed CTA chest [CT angio chest PE protcl [id number]] Stat Cat Scan 04/11/23 23:18 Completed XR chest 1V portable [id number] Stat Exams 04/11/23 22:30 [place] [id number] Routine Ultrasound 04/12/23 01:11 Completed CV. echo complete* [id number] Routine Ultrasound 04/12/23 05:08 Completed Pending at discharge Category Date Time Status LJ Profile Rheumatology AM LABS Lab 04/13/23 06:28 Received LJ Screen w/ Reflex Routine Lab 04/12/23 07:43 Received Factor 5 Leiden Mutation Routine Lab 04/12/23 04:43 Received Methylmalonic Acid Routine Lab 04/12/23 07:43 Received PROTEIN C, ACTIVITY Routine Lab 04/12/23 07:43 Received PROTEIN S, ACTIVITY Routine Lab 04/12/23 07:43 Received Radiology Impressions Chest X-Ray 04/11/23 22:30 IMPRESSION: Opacity in the peripheral left lung base is suspicious for pneumonia. Chest CTA 04/11/23 23:18 IMPRESSION: 1. Extensive pulmonary emboli. 2. No evidence of right heart strain with an RV to LV ratio of 0.92. 3. Irregular consolidations in the lung bases posteriorly and lingula thought likely to represent pulmonary infarctions. ADDENDUM: 04/12/23 0017 THIS REPORT CONTAINS FINDINGS THAT MAY BE CRITICAL TO PATIENT CARE. The findings were verbally communicated via telephone conference with KARLA Oreilly at 12:16 AM FOLDER MACHINE ADJUSTER on 04/12/2023. The findings were acknowledged and understood. Venous Duplex 04/12/23 01:11 IMPRESSION: 1. One of the 2 right posterior tibial veins is thrombosed. The other is patent. The remainder of the veins in the right lower extremity are patent. 2. No deep venous thrombosis in the left lower extremity. ADDENDUM: 04/12/23 0253 THIS REPORT CONTAINS FINDINGS THAT MAY BE CRITICAL TO PATIENT CARE. The findings were verbally communicated via telephone conference with Dr. Brady at 2:51 AM FOLDER MACHINE ADJUSTER on 04/12/2023. The findings were acknowledged and understood. Laboratory Results WBC 11.94 10^3/uL (3.29-11.43) H 04/13/23 06:28 RBC 5.71 10^6/uL (3.85-5.65) H 04/13/23 06:28 Hgb 15.70 g/dL (11.27-16.99) 04/13/23 06:28 Hct 48.7 % (37-53) 04/13/23 06:28 MCV 85.3 fl (82-101) 04/13/23 06:28 MCH 27.5 pg (27-33) 04/13/23 06:28 MCHC 32.2 g/dL (30-55) 04/13/23 06:28 RDW 13.5 % (12.1-15.1) 04/13/23 06:28 Plt Count 289 10^3/cmm (157-399) 04/13/23 06:28 MPV 9.8 fL (7.4-10.4) 04/13/23 06:28 Neut % (Auto) 69.6 % 04/13/23 06:28 Lymph % (Auto) 26.2 % 04/13/23 06:28 Gosper % (Auto) 3.2 % 04/13/23 06:28 Eos % (Auto) 0.4 % 04/13/23 06:28 Baso % (Auto) 0.3 % 04/13/23 06:28 Neut # (Auto) 8.31 10^3/uL (1.8-7.7) H 04/13/23 06:28 Lymph # (Auto) 3.1 10^3/uL (0.8-4.8) 04/13/23 06:28 Gosper # (Auto) 0.4 10^3/uL (0.2-0.9) 04/13/23 06:28 Eos # (Auto) 0.1 10^3/uL (0.0-0.8) 04/13/23 06:28 Baso # (Auto) 0.0 10^3/uL (0.0-0.1) 04/13/23 06:28 Nucleated RBC % (auto) 0 % 04/13/23 06: Nucleated RBCs # 0.0 /100WBC 04/13/23 06:28 PT 13.40 SECONDS (12.1-14.9) 04/11/23 22:48 INR 1.00 (0.8-1.2) 04/11/23 22:48 APTT 26.4 SECONDS (23.9-36.7) 04/12/23 14:24 D-Dimer 1.78 ug/mLFEU (0-0.59) H 04/11/23 22:48 Sodium 139 mmol/L (136-145) 04/13/23 06:28 Potassium 3.9 mmol/L (3.5-5.1) 04/13/23 06:28 Chloride 102 mmol/L (98-107) 04/13/23 06:28 Carbon Dioxide 24 mmol/L (22-29) 04/13/23 06:28 Anion Gap 16.9 (5-19) 04/13/23 06:28 BUN 13 mg/dL (6-20) 04/13/23 06:28 Creatinine 1.0 mg/dL (0.7-1.2) 04/13/23 06:28 GFR Calculation 84.5 mL/min (90-130) L 04/13/23 06:28 Glucose 143 mg/dL (65-115) H 04/13/23 06:28 Calculated Osmolality 291 mOsm/kg (285-295) 04/13/23 06:28 Calcium 9.2 mg/dL (8.5-10.5) 04/13/23 06:28 Total Bilirubin 0.9 mg/dL (0.15-1.2) 04/13/23 06:28 AST 27 U/L (0-40) 04/13/23 06:28 ALT 25 U/L (0-41) 04/13/23 06:28 Alkaline Phosphatase 114 U/L (40-130) 04/13/23 06:28 Troponin T Baseline < 6 ng/L (0-15) 04/11/23 22:48 Troponin T 120 Minute 6.00 ng/L (0-15) 04/12/23 00:36 Delta Troponin T 0.64374 ABS# (0-10) 04/12/23 00:36 Troponin T Hi Sens 6Hr 6.00 ng/L (0-15) 04/12/23 04:43 Troponin T Hi Sens 6Hr Delta 0.47725 ng/L (0-12) 04/12/23 04:43 NT-Pro-B Natriuret Pep < 36 pg/mL (0-125) 04/11/23 22:48 Total Protein 7.8 g/dL (6.6-8.7) 04/13/23 06:28 Albumin 4.0 g/dL (3.5-5.2) 04/13/23 06:28 Globulin 3.8 g/dL (1.3-4.6) 04/13/23 06:28 Vitamin B12 384 pg/mL (232-1245) 04/12/23 04:43 Urine Color Yellow (Yellow) 04/12/23 00:00 Urine Appearance Clear (CLEAR) 04/12/23 00:00 Urine pH 6 (5-7) 04/12/23 00:00 Ur Specific Bricelyn 1.015 (1.005-1.030) 04/12/23 00:00 Urine Protein Trace (Negative) 04/12/23 00:00 Urine Glucose (UA) Norm (Normal) 04/12/23 00:00 Urine Ketones Negative (Negative) 04/12/23 00:00 Urine Blood Neg (Negative) 04/12/23 00:00 Urine Nitrate Negative (Negative) 04/12/23 00:00 Urine Bilirubin Neg (Negative) 04/12/23 00:00 Urine Urobilinogen 1 mg/dL (Negative) H 04/12/23 00:00 Ur Leukocyte Esterase Negative (Negative) 04/12/23 00:00 Urine RBC 0-4 /hpf (0-2) H 04/12/23 00:00 Urine WBC 0-4 /hpf (0-5) H 04/12/23 00:00 Ur Squamous Epith Cells 0-4 /hpf (0-5) H 04/12/23 00:00 Amorphous Sediment Not Reportable 04/12/23 00:00 Urine Bacteria Trace /hpf (NONE) 04/12/23 00:00 Urine Mucus Trace /hpf 04/12/23 00:00 Urine Opiates Screen Negative ng/mL (Negative) 04/12/23 00:00 Ur Barbiturates Screen Negative ng/mL (Negative) 04/12/23 00:00 Ur Phencyclidine Scrn Negative ng/mL (Negative) 04/12/23 00:00 Ur Amphetamines Screen Negative ng/mL (Negative) 04/12/23 00:00 U Benzodiazepines Scrn Negative ng/mL (Negative) 04/12/23 00:00 Urine Cocaine Screen Negative ng/mL (Negative) 04/12/23 00:00 U Marijuana (THC) Screen Negative ng/mL (Negative) 04/12/23 00:00 Vitals Last Vital Signs Temp 97.6 F 04/14/23 07:47 Pulse 77 04/14/23 07:47 Resp 18 04/14/23 07:47 BP 128/80 04/14/23 07:47 Pulse Ox 95 04/14/23 07:47 O2 Del Method Room Air 04/14/23 07:47 O2 Flow Rate 2 04/13/23 07:27 Discharge Plan Discharge Patient Disposition: Home Condition: Stable Prescriptions: New Eliquis DVT-PE Treat 30D Start 5 mg (74 tabs) tablets,dose pack See Rx Instructions .ROUTE .COMPLEX Qty: 74 0RF Rx Instructions: orally per package directions Eliquis 5 mg tablet 5 mg PO BID Qty: 120 4RF acetaminophen [Tylenol 8 Hour] 650 mg tablet extended release 650 mg PO Q12H PRN (Reason: pain) Qty: 30 0RF No Action No Known Home Medications Discharge Orders: Discharge Order (Routine); Ordered 04/14/23 Ordered By: Hayde Price Patient Instructions: Opioid Safety Discharge Attestations Time Spent in Discharge Care*: greater than 30 min Quality Metrics Clinical Quality Measures [ No reported AMI, CVA or VTE this stay] Coding Level of Care Code Acute Code for [facility] Fwd Diagnoses Chest pain R07.9 Chest pain type: unspecified DVT (deep venous thrombosis) I82.409 Pulmonary infarct I26.99 Pulmonary embolism I26.99 Acute cor pulmonale presence: without acute cor pulmonale Chronicity: unspecified Pulmonary embolism type: unspecified
--- NOTE | 2023-04-14 12:00 | PC.NURSE ---
At bedside and spoke with patient about how to take Eliquis. Take 2 pills in the morning and take 2 pills at night for 7 days. Then take 1 pill by mouth in the morning and 1 pill by mouth at night for the rest of that prescription bottle. Then start the bottle that says 2nd on it and take 1 pill in the morning and 1 pill at night until they are gone as well. Patient verbalized understanding of how to take the medications. Patient is A&Ox3. Respirations even and non-labored on room air.
[2023-04-14 12:22] VITALS: BP 137/89; PULSE 91; RESP 20; TEMP 36.6; O2SAT 96
[2023-04-14 14:04] VITALS: BP 137/89; PULSE 91; RESP 20; TEMP 36.6; O2SAT 96
[2023-04-15 23:39] LABS: PROTEIN S, ACTIVITY 110 % normal (70-150)
[2023-04-16 04:14] LABS: Anti-Nuclear Antibody Screen NEGATIVE (NEGATIVE)
[2023-04-16 07:50] LABS: Methylmalonic Acid 89 nmol/L (87-318)
[2023-04-16 12:09] LABS: COMPLEMENT COMPONENT C3C 199 mg/dL (82-185); COMPLEMENT COMPONENT C4C 55 mg/dL (15-53)
[2023-04-16 12:29] LABS: THYROID PEROXIDASE ANTIBODIES 2 IU/mL (<9)
[2023-04-16 14:24] LABS: CENTROMERE B ANTIBODY <1.0 NEG AI (<1.0 NEG); JO-1 ANTIBODY <1.0 NEG AI (<1.0 NEG); RNP ANTIBODY <1.0 NEG AI (<1.0 NEG); SCL-70 ANTIBODY <1.0 NEG AI (<1.0 NEG); SJOGREN'S ANTIBODY (SS-A) <1.0 NEG AI (<1.0 NEG); SM ANTIBODY <1.0 NEG AI (<1.0 NEG); SS-B <1.0 NEG AI (<1.0 NEG)
[2023-04-16 14:58] LABS: COMPLEMENT, TOTAL (CH50) >60 U/mL (31-60)
[2023-04-16 16:13] LABS: ANA SCREEN, IFA NEGATIVE (NEGATIVE)
[2023-04-17 06:13] LABS: PROTEIN C, ACTIVITY 148 % normal (70-180)
[2023-04-18 19:03] LABS: Factor 5 Leiden Mutation NEGATIVE
[2023-04-20 17:55] LABS: DNA AB (DS) CRITHIDIA,IFA NEGATIVE (NEGATIVE)
== END 2023-04-14 13:24 | disposition home or self-care (01) | DRG 176 ==
LOC: ER 04-12 01:24 → MEDSURG 04-12 02:04
PROVIDERS: Admitting Provider Student in an Organized Health Care Education/Training Program; Emergency Provider Internal Medicine; Visit Provider Internal Medicine
DX: I26.99 Other pulmonary embolism without acute cor pulmonale (principal); I82.441 Acute embolism and thrombosis of right tibial vein; T45.516A Underdosing of anticoagulants, initial encounter; R00.0 Tachycardia, unspecified; Z86.718 Personal history of other venous thrombosis and embolism; Z91.128 Patient's intentional underdosing of medication regimen for other reason
CPT/HCPCS: 36415; 71045; 71275; 74176; 80053; 80306; 81001; 81241; 82607; 83880; 83921; 84484; 85025; 85303; 85306; 85378; 85610; 85730; 86038; 86160; 86162; 86235; 86255; 86376; 93005; 93306; 93970; 96365; 96372; 96375; 99285; J1644; J1650; J1885; J2270; J2405; J7030; Q9967